=== PATIENT | male | born 1950 | race Caucasian/White ===

== ENCOUNTER 2017-01-28 12:18 | Outpatient (CLI) | payer MEDICARE, OTHER | END 2017-01-28 12:19 | disposition home or self-care (01) | LOC: LAB 12:18 | PROVIDERS: ATTEND Internal Medicine | DX: Z53.9 Procedure and treatment not carried out, unspecified reason (principal) | CPT/HCPCS: 85610 ==

== ENCOUNTER 2017-07-24 08:00 | Outpatient (CLI) | payer MEDICARE, OTHER ==
[2017-07-24 17:43] LABS: BASOPHILS # (AUTO) 0.1 10^3/uL (0.0-0.1); BASOPHILS % (AUTO) 0.7 %; EOSINOPHILS # (AUTO) 0.2 10^3/uL (0.0-0.7); EOSINOPHILS % (AUTO) 3.3 %; HGB - HEMOGLOBIN 14.2 g/dL (14.0-18.0); LYMPHOCYTES # (AUTO) 2.5 10^3/uL (1.5-3.5); LYMPHOCYTES % (AUTO) 34.5 %; MEAN CORPUSCULAR HEMOGLOBIN 32.7 pg (27.0-31.0); MEAN CORPUSCULAR VOLUME 99.3 fL (80.0-94.0); MEAN PLATELET VOLUME 9.1 fL (7.4-11.4); MONOCYTES # (AUTO) 0.5 10^3/uL (0.0-1.0); MONOCYTES % (AUTO) 7.1 %; NEUTROPHILS % (AUTO) 54.4 %; PLT - PLATELET COUNT 172 10^3/uL (130-450); RED BLOOD COUNT 4.35 10^6/uL (4.70-6.10); RED CELL DISTRIBUTION WIDTH 13.3 % (12.0-15.0); WHITE BLOOD COUNT 7.4 x10^3/uL (4.8-10.8)
[2017-07-24 18:06] LABS: ALBUMIN/GLOBULIN RATIO 1.3 (1.0-2.2); ALKALINE PHOSPHATASE 60 IU/L (42-121); ALT ALANINE AMINOTRANSFERASE 59 IU/L (10-60); AST ASPARTATE AMINOTRANSFERASE 32 IU/L (10-42); BILIRUBIN,TOTAL 0.4 mg/dL (0.2-1.0); BUN - BLOOD UREA NITROGEN 16 mg/dL (6-20); CALCIUM 8.9 mg/dL (8.5-10.3); CARBON DIOXIDE - CO2 28 mmol/L (21-32); CHLORIDE 105 mmol/L (101-111); CHOL/HDL RATIO 5.9 (<5.0); CHOLESTEROL 182 mg/dL; CREATININE 0.8 mg/dL (0.6-1.2); GFR - MDRD 96 (>89); GLUCOSE 83 mg/dL (70-100); HDL CHOLESTEROL 31 mg/dL; LDL CHOLESTEROL,CALCULATED 83 mg/dL; LDL/HDL RATIO 2.7 (<3.6); SODIUM 138 mmol/L (135-145); TOTAL PROTEIN 7.2 g/dL (6.7-8.2); URIC ACID 4.8 mg/dL (2.6-7.2); VLDL CHOLESTEROL 68 mg/dL
== END 2017-07-24 08:01 | disposition home or self-care (01) ==
LOC: LAB.R 08:00
PROVIDERS: ATTEND Internal Medicine
DX: E78.6 Lipoprotein deficiency (principal); Z12.5 Encounter for screening for malignant neoplasm of prostate; I10 Essential (primary) hypertension; M50.10 Cervical disc disorder with radiculopathy, unspecified cervical region; M10.9 Gout, unspecified
CPT/HCPCS: 80053; 80061; 84443; 84550; 85025; G0103; 83721; 84153

== ENCOUNTER 2019-06-23 14:46 | Outpatient (CLI) | payer MEDICARE, OTHER ==
--- NOTE | 2019-06-24 09:31 | XRAY Report ---
Reason: PAIN IN RIGHT HAND Procedure Date: 06/23/2019 Accession Number: [id number] / [id number] Procedure: XR - Hand 2 View RT CPT Code: Final Report FULL RESULT: EXAM: RIGHT HAND RADIOGRAPHY EXAM DATE: 06/23/2019 02:59 PM. CLINICAL HISTORY: PAIN IN RIGHT HAND. COMPARISON: None. TECHNIQUE: 2 views. FINDINGS: Bones: Normal. No fractures or bone lesions. Joints: Interphalangeal joint space narrowing is most pronounced at the right thumb interphalangeal joint and middle finger distal interphalangeal joint. Right thumb interphalangeal marginal spurring. No subluxation. Scaphomultangular joint space narrowing. Soft Tissues: Normal. No soft tissue swelling. IMPRESSION: Degenerative changes. RADIA
== END 2019-06-23 14:47 | disposition home or self-care (01) ==
LOC: DI 14:46
PROVIDERS: ATTEND Internal Medicine
DX: M19.041 Primary osteoarthritis, right hand (principal)

== ENCOUNTER 2020-08-23 08:00 | Outpatient (CLI) | payer MEDICARE, OTHER ==
[2020-08-23 10:47] LABS: BASOPHILS % (AUTO) 0.3 %; EOSINOPHILS # (AUTO) 0.2 10^3/uL (0.0-0.7); EOSINOPHILS % (AUTO) 2.6 %; HGB - HEMOGLOBIN 14.6 g/dL (14.0-18.0); LYMPHOCYTES # (AUTO) 2.5 10^3/uL (1.5-3.5); LYMPHOCYTES % (AUTO) 33.7 %; MEAN CORPUSCULAR HEMOGLOBIN 33.9 pg (27.0-31.0); MEAN CORPUSCULAR HGB CONC 34.4 g/dL (32.0-36.0); MEAN CORPUSCULAR VOLUME 98.4 fL (80.0-94.0); MEAN PLATELET VOLUME 9.5 fL (7.4-11.4); MONOCYTES # (AUTO) 0.7 10^3/uL (0.0-1.0); MONOCYTES % (AUTO) 8.9 %; NEUTROPHILS % (AUTO) 53.8 %; PLT - PLATELET COUNT 163 10^3/uL (130-450); RED BLOOD COUNT 4.31 10^6/uL (4.70-6.10); RED CELL DISTRIBUTION WIDTH 12.6 % (12.0-15.0); WHITE BLOOD COUNT 7.3 x10^3/uL (4.8-10.8)
[2020-08-23 11:09] LABS: ALBUMIN 4.2 g/dL (3.2-5.5); ALBUMIN/GLOBULIN RATIO 1.3 (1.0-2.2); ALKALINE PHOSPHATASE 71 IU/L (42-121); ALT ALANINE AMINOTRANSFERASE 42 IU/L (10-60); AST ASPARTATE AMINOTRANSFERASE 23 IU/L (10-42); BUN - BLOOD UREA NITROGEN 20 mg/dL (6-20); CALCIUM 9.6 mg/dL (8.5-10.3); CARBON DIOXIDE - CO2 29 mmol/L (21-32); CHLORIDE 102 mmol/L (101-111); CHOL/HDL RATIO 5.7 (<5.0); CHOLESTEROL 189 mg/dL; CREATININE 0.9 mg/dL (0.6-1.2); GLUCOSE 107 mg/dL (70-100); HDL CHOLESTEROL 33 mg/dL; LDL CHOLESTEROL,CALCULATED 111 mg/dL; LDL/HDL RATIO 3.4 (<3.6); TOTAL PROTEIN 7.5 g/dL (6.7-8.2); URIC ACID 4.9 mg/dL (2.6-7.2); VLDL CHOLESTEROL 45 mg/dL
[2020-08-23 11:42] LABS: CRP - C-REACTIVE PROTEIN < 1.0 mg/dL (0-1.0)
== END 2020-08-23 23:59 | disposition home or self-care (01) ==
LOC: LAB 08:00
PROVIDERS: ATTEND Family Medicine
DX: M10.9 Gout, unspecified (principal); H91.90 Unspecified hearing loss, unspecified ear; I10 Essential (primary) hypertension
CPT/HCPCS: 36415; 80053; 80061; 83721; 84443; 84550; 85025; 85651; 86140

== ENCOUNTER 2022-03-12 09:15 | Outpatient (CLI) | payer MEDICARE | END 2022-03-12 09:16 | disposition left against medical advice (07) | LOC: EMS 09:15 | DX: S20.411A Abrasion of right back wall of thorax, initial encounter (principal); R53.1 Weakness; W18.2XXA Fall in (into) shower or empty bathtub, initial encounter; Y92.002 Bathroom of unspecified non-institutional (private) residence as the place of occurrence of the external cause; Z20.822 Contact with and (suspected) exposure to COVID-19; I49.9 Cardiac arrhythmia, unspecified ==

== ENCOUNTER 2022-05-06 10:32 | Emergency (ER) | payer MEDICARE ==
[2022-05-06 10:38] VITALS: BP 162/85
--- NOTE | 2022-05-06 10:46 | ED Physician Documentation ---
PD HPI UPPER EXT INJURY - Stated complaint Stated Complaint: FALL/SHOULDER PX - Chief complaint Chief Complaint: Trauma Ext - History obtained from History obtained from: Patient - History of Present Illness Location: Right, Shoulder Type of injury: Fall Where injury occurred: Home Timing - onset: How many days ago Timing - duration: Days Timing - details: Abrupt onset, Still present Worsened by: Moving (mainly abduction and some rotational movements. Has bruising show up just below shoulder today.), Palpating Associated symptoms: Discolored (bruising developing today). No: Weakness, Numbness Review of Systems Skin: denies: Abrasion (s), Laceration (s) Musculoskeletal: denies: Neck pain Neurologic: denies: Focal weakness, Numbness PD PAST MEDICAL HISTORY - Past Medical History Cardiovascular: None Respiratory: None Musculoskeletal: None - Present Medications Home Medications: Ambulatory Orders Medication Instructions Recorded Confirmed HYDROcod/ACETAM 5/325 [[place] 5/325] 1 ea PO Q6H PRN #14 tablet 05/06/22 - Allergies Allergies/Adverse Reactions: Allergies Allergy/AdvReac Type Severity Reaction Status Date / Time No Known Drug Allergies Allergy Verified 05/06/22 10:38 - Living Situation Living Situation: reports: With spouse/s.o. Living Arrangement: reports: At home PD ED PE NORMAL - Vitals Vital signs reviewed: Yes - General General: Alert and oriented X 3, No acute distress (comfortable with arm rested to side. pain with rom. ), Well developed/nourished - Derm Derm: Normal color, Warm and dry, No rash, Other (bruising purple/yellow without tenderness just below shoulder and toward the mid bicep area. ) - Extremities Extremities: Other (right shoulder pain with abduction, external rotation, flexion. Not as bad with extension, internal rotation and adduction. Biceps flexion without pain. ) - Neuro Neuro: Alert and oriented X 3, No motor deficit, No sensory deficit, Normal speech Results - Vitals Vitals: Oxygen O2 Source Room air - Rads (name of study) shoulder xray Radiology: Prelim report reviewed (no fracture), See rad report PD MEDICAL DECISION MAKING - ED course Complexity details: reviewed results, considered differential (seems likely rotator cuff partial tear or tear, likely supraspinatus? To use sling with ROM often during the day. f/u ortho. ), d/w patient Departure - Departure Disposition: 01 Home, Self Care Clinical Impression: Fall from slip, trip, or stumble Qualifiers: Encounter type: initial encounter Qualified Code(s): W01.0XXA - Fall on same level from slipping, tripping and stumbling without subsequent striking against object, initial encounter Injury of right rotator cuff Qualifiers: Encounter type: initial encounter Qualified Code(s): S46.001A - Unspecified injury of muscle(s) and tendon(s) of the rotator cuff of right shoulder, initial encounter Condition: Stable Record reviewed to determine appropriate education?: Yes Instructions: ED Torn Rotator Cuff Follow-Up: Jose Roberto Alvarenga MD [Primary Care Provider] - [facility] [Provider Group] Prescriptions: HYDROcod/ACETAM 5/325 [[place] 5/325] 1 ea PO Q6H PRN #14 tablet PRN Reason: Pain Comments: Your x-ray is normal without any signs of fractures no dislocation. Clinically it sounds likely you have a partial tear of the rotator cuff. This is a collective of 4 muscle and tendons that anchor the shoulder and provide rotational movement. It is unusual to tear them completely but you can have injury to 1 or 2 of the tendons. I would suggest using a sling with gentle range of motion a few times a day for the next couple of weeks. I would follow-up with orthopedics in about a week, call today for an appointment. At that point they can see how your shoulder is doing and decide further duration of treatment and if any other imaging is warranted. Meanwhile use the sling much of the time. In particular no overhead reaching, push pull, lifting with the arm. Use Tylenol every 4-6 hours (4 times a day regularly for the next 7 to 10 days). Alternatively can use hydrocodone/acetaminophen if needed for worse pain. You could also use anti-inflammatory such as naproxen or Aleve twice daily with food for the next several days to week. You will develop more bruising likely down the arm and this just leaching of the blood from the shoulder downward by gravity. I sent your prescription to [facility] pharmacy. I am prescribing a short course of narcotic pain medication for you. These are potentially dangerous and addictive medications that should be used carefully. These medications may constipate you. Take an rxkk-uti-dmgoroc stool softener such as docusate twice daily with plenty of water while taking these medications. If you go 24 hours without a bowel movement, take njpc-jnv-jnmjsul MiraLAX, per package instructions. Do not drink or drive while taking these medications. If you received narcotic or sedating medications while in the emergency department do not drive for 24 hours. Store this medication in a safe, secure place and out of reach of children. It is a violation of federal law to give or sell this medication to another person or to use in a manner other than prescribed. The ED will not refill narcotic prescriptions, including prescriptions lost or stolen. You can dispose of unwanted medications at the [facility] office or at several pharmacies such as [facility]. Discharge Date/Time: 05/06/22 11:59
--- NOTE | 2022-05-06 11:24 | XRAY Report ---
PROCEDURE: Shoulder 3 View RT INDICATIONS: trauma TECHNIQUE: 3 views of the shoulder were acquired. COMPARISON: None. FINDINGS: Bones: No fractures or dislocations. No suspicious bony lesions. Visualized ribs appear intact. S evere acromioclavicular degenerative narrowing. Glenohumeral degenerative narrowing is also present. Soft tissues: No suspicious soft tissue calcifications. IMPRESSION: No visualized acute fracture or dislocation. However, occult injury cannot be excluded. Recommend short interval imaging follow-up in 7-10 days as clinically indicated for additional evalua tion. Reviewed by: Kayce Santiago MD on 05/06/2022 11:23 AM PDT Approved by: Kayce Santiago MD on 05/06/2022 11:23 AM PDT Station ID: [id number]
[2022-05-06] MEDS ORDERED: ACETAMINOPHEN 325 MG TABLET PO STA (11:26)
== END 2022-05-06 11:59 | disposition home or self-care (01) ==
LOC: ED 10:32
DX: S46.001A Unspecified injury of muscle(s) and tendon(s) of the rotator cuff of right shoulder, initial encounter (principal); W01.0XXA Fall on same level from slipping, tripping and stumbling without subsequent striking against object, initial encounter
CPT/HCPCS: 73030; 99282; 99283; A9270

== ENCOUNTER 2022-05-14 12:45 | Outpatient (CLI) | payer MEDICARE ==
--- NOTE | 2022-05-14 14:33 | XRAY Report ---
PROCEDURE: Clavicle RT INDICATIONS: PAIN IN RIGHT SHOULDER TECHNIQUE: 2 views of the clavicle were acquired. COMPARISON: X-ray right shoulder, 05/14/2022 and 05/06/2022. FINDINGS: Bones: No fractures or dislocations. No suspicious bony lesions. There is moderate acromioclavicul ar and glenohumeral joint degeneration with joint space narrowing and periarticular osteophytes. Soft tissues: No suspicious soft tissue calcifications. IMPRESSION: 1. No acute osseous abnormalities. 2. Moderate osteoarthritis of the acromioclavicular and glenohumeral joints. Reviewed by: Dominik Ballesteros MD on 05/14/2022 2:32 PM PST Approved by: Dominik Ballesteros MD on 05/14/2022 2:32 PM PST Station ID: [id number]
--- NOTE | 2022-05-14 16:30 | XRAY Report ---
PROCEDURE: Shoulder 3 View RT INDICATIONS: SHOULDER PX TECHNIQUE: 3 views of the shoulder were acquired. COMPARISON: X-ray right clavicle, 05/14/2022. FINDINGS: Bones: No fractures or dislocations. No suspicious bony lesions. Moderate osteoarthritic changes i n acromioclavicular and glenohumeral joint. Visualized ribs appear intact. Soft tissues: No suspicious soft tissue calcifications. IMPRESSION: 1. Moderate osteoarthritis. 2. No fracture or dislocation. If clinical suspicion for internal derangement is high, MRI would be h elpful. Reviewed by: Dominik Ballesteros MD on 05/14/2022 4:29 PM PST Approved by: Dominik Ballesteros MD on 05/14/2022 4:29 PM PST Station ID: [id number]
== END 2022-05-14 12:46 | disposition home or self-care (01) ==
LOC: DI 12:45
PROVIDERS: ATTEND Physician Assistant
DX: M19.011 Primary osteoarthritis, right shoulder (principal)

== ENCOUNTER 2023-07-22 08:27 | Outpatient (CLI) | payer MEDICARE ==
[2023-07-22 08:39] LABS: BASOPHILS % (AUTO) 0.4 %; EOSINOPHILS # (AUTO) 0.2 10^3/uL (0.0-0.7); EOSINOPHILS % (AUTO) 2.2 %; HCT - HEMATOCRIT 42.5 % (42.0-52.0); HGB - HEMOGLOBIN 14.4 g/dL (14.0-18.0); LYMPHOCYTES # (AUTO) 2.6 10^3/uL (1.5-3.5); LYMPHOCYTES % (AUTO) 33.9 %; MEAN CORPUSCULAR HEMOGLOBIN 33.4 pg (27.0-31.0); MEAN CORPUSCULAR HGB CONC 33.9 g/dL (32.0-36.0); MEAN CORPUSCULAR VOLUME 98.6 fL (80.0-94.0); MEAN PLATELET VOLUME 9.5 fL (7.4-11.4); MONOCYTES # (AUTO) 0.7 10^3/uL (0.0-1.0); MONOCYTES % (AUTO) 8.6 %; NEUTROPHILS # (AUTO) 4.1 10^3/uL (1.5-6.6); NEUTROPHILS % (AUTO) 54.1 %; PLT - PLATELET COUNT 158 10^3/uL (130-450); RED BLOOD COUNT 4.31 10^6/uL (4.70-6.10); RED CELL DISTRIBUTION WIDTH 12.7 % (12.0-15.0); WHITE BLOOD COUNT 7.6 x10^3/uL (4.8-10.8)
[2023-07-22 09:02] LABS: ALBUMIN 4.1 g/dL (3.2-5.5); ALBUMIN/GLOBULIN RATIO 1.5 (1.0-2.2); ALKALINE PHOSPHATASE 74 IU/L (42-121); ALT ALANINE AMINOTRANSFERASE 25 IU/L (10-60); AST ASPARTATE AMINOTRANSFERASE 18 IU/L (10-42); BILIRUBIN,TOTAL 0.7 mg/dL (0.2-1.0); BUN - BLOOD UREA NITROGEN 16 mg/dL (6-20); CALCIUM 9.6 mg/dL (8.5-10.3); CARBON DIOXIDE - CO2 33 mmol/L (21-32); CHLORIDE 102 mmol/L (101-111); CHOL/HDL RATIO 5.3 (<5.0); CHOLESTEROL 186 mg/dL; CREATININE 0.9 mg/dL (0.6-1.3); GFR - MDRD 82 (>89); GLUCOSE 112 mg/dL (74-104); HDL CHOLESTEROL 35 mg/dL; LDL CHOLESTEROL,CALCULATED 104 mg/dL; POTASSIUM 4.3 mmol/L (3.5-4.5); SODIUM 141 mmol/L (135-145); TOTAL PROTEIN 6.9 g/dL (6.4-8.9); TRIGLYCERIDES 235 mg/dL (48-352); URIC ACID 4.9 mg/dL (4.4-7.6); VLDL CHOLESTEROL 47 mg/dL
[2023-07-22 09:08] LABS: THYROID STIMULATING HORMONE 2.33 uIU/mL (0.34-5.60)
== END 2023-07-22 08:28 | disposition home or self-care (01) ==
LOC: LAB 08:27
PROVIDERS: ATTEND Family Medicine
DX: I10 Essential (primary) hypertension (principal); Z12.5 Encounter for screening for malignant neoplasm of prostate; M10.9 Gout, unspecified; M47.12 Other spondylosis with myelopathy, cervical region; J44.9 Chronic obstructive pulmonary disease, unspecified
CPT/HCPCS: 36415; 80053; 80061; 84443; 84550; 85025; G0103; 83721; 84153

== ENCOUNTER 2023-10-11 12:36 | Emergency (ER) | payer MEDICARE ==
--- NOTE | 2023-10-11 13:33 | ED Physician Documentation ---
PD HPI UPPER EXT INJURY - Stated complaint Stated Complaint: WRIST/BK PX - Chief complaint Chief Complaint: Trauma Ext - History obtained from History obtained from: Patient, Family - History of Present Illness Location: Right, Wrist Type of injury: Other (pushed off with right hand to stand up) Where injury occurred: Home Timing - onset: Yesterday Timing - duration: Days (1) Timing - details: Abrupt onset, Still present Improved by: Rest, Immobilization Worsened by: Moving, Palpating Associated symptoms: No: Weakness, Numbness, Tingling, Swelling, Discolored Contributing factors: No: Anticoagulated Similar symptoms before: Diagnosis (wrist fracture) Recently seen: Not recently seen - Additonal information Additional information: 73-year-old Jorge Gallego has a history of prostate cancer hypertension and gout and yesterday he was at his home changing the tires on his lawnmower when he went to stand up he put his hand on top of the lawnmower and pushed himself up to stand. He felt that he had some mild pain to his hand at the time but this did not blossom into significant pain until an hour or 2 later. He has had pain since then and had some difficulty sleeping last night. He has some reduced range of motion secondary to the pain. Review of Systems Constitutional: denies: Fever Ears: denies: Ear pain Nose: denies: Congestion Throat: denies: Sore throat Respiratory: denies: Cough GI: denies: Vomiting PD PAST MEDICAL HISTORY - Past Medical History Past Medical History: Yes Cardiovascular: Hypertension Respiratory: None Endocrine/Autoimmune: None GI: None : None HEENT: Chronic hearing loss Psych: None Musculoskeletal: Osteoarthritis, Gout, Chronic back pain Derm: None - Past Surgical History Past Surgical History: Yes Ortho: Spine surgery - Present Medications Home Medications: Ambulatory Orders Medication Instructions Recorded Confirmed Aspirin [Aspirin EC] 162 mg PO DAILY 09/02/23 10/11/23 Cholecalciferol [Vitamin D3] 25 mcg PO DAILY 09/02/23 10/11/23 Lisinopril [Zestril] 20 mg PO DAILY 09/02/23 10/11/23 Multivitamin 1 each PO DAILY 09/02/23 10/11/23 [place]-3/Dha/Epa/Fish Oil [Fish Oil 1 each PO DAILY 09/02/23 10/11/23 1,000 mg Softgel] allopurinoL [Allopurinol] 300 mg PO DAILY 09/02/23 10/11/23 - Allergies Allergies/Adverse Reactions: Allergies Allergy/AdvReac Type Severity Reaction Status Date / Time No Known Drug Allergies Allergy Verified 10/11/23 12:40 - Social History Does the pt smoke?: No Smoking Status: Never smoker Does the pt drink ETOH?: No Does the pt have substance abuse?: No - Immunizations Immunizations: TDAP >10years/unknown PD ED PE NORMAL - Vitals Vital signs reviewed: Yes (hypertensive ) - General General: Alert and oriented X 3, No acute distress, Well developed/nourished - HEENT HEENT: Atraumatic, PERRL, EOMI - Respiratory Respiratory: No respiratory distress - Derm Derm: Normal color, Warm and dry, No rash - Extremities Extremities: No deformity, No edema, Other (Tenderness to the distal radius on the radial surface there is specifically not tenderness in the anatomic snuffbox. The patient does have reduced range of motion to flexion extension. Distal neurovascular components intact no crepitance or deformity) - Neuro Neuro: Alert and oriented X 3, gel coater 2-12 intact, No motor deficit, No sensory deficit, Normal speech Eye Opening: Spontaneous Motor: Obeys Commands Verbal: Oriented GCS Score: 15 - Psych Psych: Normal mood, Normal affect Results - Vitals Vitals: Vital Signs - 24 hr 10/11/23 10/11/23 12:40 14:28 Temperature 36.5 C 36.8 C Heart Rate 50 L 49 L Respiratory 16 16 Rate Blood Pressure 160/63 H 114/93 H O2 Saturation 94 96 Oxygen O2 Source Room air - Rads (name of study) wrist R Relevant Findings:: Prelim report reviewed (Impression: Unremarkable wrist radiographs.), [facility] independent interpretation of test Procedures - Splint (location) - Minor Right wrist Splint applied by: Tech Type of splint: Fiberglass, Volar cock up Other: Patient tolerated well, No complications, Neurovascular intact, Good alignment PD Medical Decision Making - ED course Complexity details: reviewed results, re-evaluated patient, considered differential, d/w patient, d/w family ED course: 73-year-old Jorge Gallego has sprained his right wrist. He is placed into a volar splint and we will have him follow-up with his primary. I have discussed the possibility of requiring a second x-ray if he does not have resolution at the 7 to 10-day trina. Departure - Departure Disposition: 01 Home, Self Care Clinical Impression: Sprain of right wrist Qualifiers: Encounter type: initial encounter Qualified Code(s): S63.501A - Unspecified sprain of right wrist, initial encounter Condition: Stable Instructions: ED Sprain Wrist Follow-Up: Jose Roberto Alvarenga MD [Primary Care Provider] - Comments: Jorge, today it looks like you have sprained your wrist and we have placed you into a wrist splint. The recommendation is to wear this splint for 1 to 2 weeks and when you can open a door without pain to your wrist you can stop using the splint. If you have persistence of this pain at 1 week to 10 days a second x- ray is indicated to rule out occult fracture. Forms: PCP List Discharge Date/Time: 10/11/23 14:28
[2023-10-11 14:36] VITALS: BP 114/93; O2SAT 96
--- NOTE | 2023-10-11 15:21 | XRAY Report ---
PROCEDURE: Wrist 3+V RT INDICATIONS: pain TECHNIQUE: 4 views of the wrist were acquired. COMPARISON: None FINDINGS: Bones: No fractures or dislocations. No suspicious bony lesions. Soft tissues: No suspicious soft tissue calcifications or masses. IMPRESSION: Unremarkable wrist radiographs Reviewed by: Gerard Lozada MD on 10/11/2023 2:19 PM AKDT Approved by: Gerard Lozada MD on 10/11/2023 2:19 PM AKDT Station ID: [id number]
== END 2023-10-11 14:28 | disposition home or self-care (01) ==
LOC: ED 12:36
DX: S63.501A Unspecified sprain of right wrist, initial encounter (principal); X58.XXXA Exposure to other specified factors, initial encounter; I10 Essential (primary) hypertension; M10.9 Gout, unspecified; Z85.46 Personal history of malignant neoplasm of prostate; Z79.82 Long term (current) use of aspirin; Z79.899 Other long term (current) drug therapy
CPT/HCPCS: 29125; 99283; 99284

== ENCOUNTER 2024-01-29 12:57 | Outpatient (CLI) | payer MEDICARE ==
[2024-01-29 13:08] LABS: BASOPHILS % (AUTO) 0.4 %; EOSINOPHILS % (AUTO) 0.6 %; HCT - HEMATOCRIT 40.6 % (42.0-52.0); HGB - HEMOGLOBIN 13.3 g/dL (14.0-18.0); LYMPHOCYTES # (AUTO) 1.9 10^3/uL (1.5-3.5); LYMPHOCYTES % (AUTO) 27.6 %; MEAN CORPUSCULAR HEMOGLOBIN 32.9 pg (27.0-31.0); MEAN CORPUSCULAR HGB CONC 32.8 g/dL (32.0-36.0); MEAN CORPUSCULAR VOLUME 100.5 fL (80.0-94.0); MEAN PLATELET VOLUME 10.1 fL (7.4-11.4); MONOCYTES # (AUTO) 0.4 10^3/uL (0.0-1.0); MONOCYTES % (AUTO) 5.7 %; NEUTROPHILS # (AUTO) 4.4 10^3/uL (1.5-6.6); NEUTROPHILS % (AUTO) 65.1 %; PLT - PLATELET COUNT 146 10^3/uL (130-450); RED BLOOD COUNT 4.04 10^6/uL (4.70-6.10); RED CELL DISTRIBUTION WIDTH 12.3 % (12.0-15.0); WHITE BLOOD COUNT 6.8 x10^3/uL (4.8-10.8)
[2024-01-29 13:27] LABS: ALBUMIN 4.4 g/dL (3.2-5.5); ALBUMIN/GLOBULIN RATIO 1.6 (1.0-2.2); BILIRUBIN,TOTAL 0.9 mg/dL (0.2-1.0); CALCIUM 10.3 mg/dL (8.5-10.3); CREATININE 0.9 mg/dL (0.6-1.3); POTASSIUM 4.2 mmol/L (3.5-4.5); TOTAL PROTEIN 7.2 g/dL (6.4-8.9)
== END 2024-01-29 12:58 | disposition home or self-care (01) ==
LOC: LAB 12:57
PROVIDERS: ATTEND Internal Medicine Hematology & Oncology
DX: C61 Malignant neoplasm of prostate (principal)
CPT/HCPCS: 36415; 80053; 84153; 85025

== ENCOUNTER 2024-03-25 08:02 | Outpatient (CLI) | payer MEDICARE ==
[2024-03-25 08:15] LABS: BASOPHILS % (AUTO) 0.6 %; EOSINOPHILS # (AUTO) 0.1 10^3/uL (0.0-0.7); HCT - HEMATOCRIT 40.5 % (42.0-52.0); HGB - HEMOGLOBIN 13.4 g/dL (14.0-18.0); LYMPHOCYTES # (AUTO) 0.8 10^3/uL (1.5-3.5); LYMPHOCYTES % (AUTO) 16.4 %; MEAN CORPUSCULAR HEMOGLOBIN 33.3 pg (27.0-31.0); MEAN CORPUSCULAR HGB CONC 33.1 g/dL (32.0-36.0); MEAN CORPUSCULAR VOLUME 100.7 fL (80.0-94.0); MEAN PLATELET VOLUME 9.5 fL (7.4-11.4); MONOCYTES # (AUTO) 0.5 10^3/uL (0.0-1.0); MONOCYTES % (AUTO) 9.8 %; NEUTROPHILS # (AUTO) 3.6 10^3/uL (1.5-6.6); NEUTROPHILS % (AUTO) 70.6 %; PLT - PLATELET COUNT 152 10^3/uL (130-450); RED BLOOD COUNT 4.02 10^6/uL (4.70-6.10); RED CELL DISTRIBUTION WIDTH 12.7 % (12.0-15.0); WHITE BLOOD COUNT 5.1 x10^3/uL (4.8-10.8)
[2024-03-25 08:29] LABS: ALBUMIN 4.1 g/dL (3.2-5.5); ALBUMIN/GLOBULIN RATIO 1.6 (1.0-2.2); BILIRUBIN,TOTAL 0.9 mg/dL (0.2-1.0); CREATININE 0.9 mg/dL (0.6-1.3); POTASSIUM 3.7 mmol/L (3.5-4.5); TOTAL PROTEIN 6.6 g/dL (6.4-8.9)
== END 2024-03-25 08:03 | disposition home or self-care (01) ==
LOC: LAB 08:02
PROVIDERS: ATTEND Internal Medicine Hematology & Oncology
DX: C61 Malignant neoplasm of prostate (principal)
CPT/HCPCS: 36415; 80053; 85025

== ENCOUNTER 2024-06-30 20:34 | Observation (INO) ==
--- NOTE | 2024-06-30 21:09 | ED Physician Documentation ---
History of Present Illness Stated complaint Stated Complaint: VOMIT Chief complaint Chief Complaint: General Additonal information Additional information: 74-year-old presents with possible food impaction. Patient was eating steak last night when he felt food get stuck in his lower esophagus. Since then, he has been unable to swallow solids or liquids. He has tried around 10 times to drink or eat something with no success. He tried a cold 7-Up as well as antacids with no improvement. He has never had a food impaction before. He presents this evening due to continuation of the substernal discomfort. Meds/Allgy Home Medications Ambulatory Orders Medication Instructions Recorded Confirmed aspirin 325 mg tablet,delayed 162 mg PO DAILY 09/02/23 06/30/24 release cholecalciferol (vitamin D3) 25 25 mcg PO DAILY 09/02/23 06/30/24 mcg (1,000 unit) tablet multivitamin 1 ea PO DAILY 09/02/23 06/30/24 omega 0-ebe-keb-fish oil 300 1 ea PO DAILY 09/02/23 06/30/24 mg-1,000 mg capsule (Fish Oil) allopurinol 300 mg tablet 300 mg PO DAILY #90 tabs 04/27/24 06/30/24 lisinopril 20 mg tablet (Zestril) 20 mg PO DAILY #90 tabs 04/27/24 06/30/24 oxybutynin chloride 5 mg tablet 5 mg PO .nightly #30 tabs 06/17/24 06/30/24 Allergies Allergies Allergy/AdvReac Type Severity Reaction Status Date / Time No Known Drug Allergies Allergy Verified 06/30/24 20:52 [facility] Medical History Medical History (Updated 06/30/24 @ 22:00 by Francisco Preston MD) History of hypertension Social History Social History Smoking Status: Former smoker Do you vape?: No Living arrangement: At home Living Condition: With spouse/s.o. Relationship: Do you feel safe in your home environment?: Yes Suffered physical, verbal, emotional, or financial abuse?: No History of Abuse: No Exam Exam Patient in no apparent distress and no evidence of drooling. He is actively spitting up into a vomit basin. There is no abdominal tenderness. He is speaking in full sentences with unlabored breathing. There is no respiratory distress. Lungs are clear to auscultation bilaterally. Results Vitals Vitals: Vital Signs - 24 hr 06/30/24 20:42 06/30/24 20:56 Temperature 36.6 C Temperature Source Skin Pulse Rate 59 L 77 Respiratory Rate 18 18 Blood Pressure 140/87 H 155/76 H O2 Saturation 95 93 O2 Source Room air Room air Pain Intensity 5 0 Oxygen O2 Source Room air PD Medical Decision Making ED course ED course: Presents for concerns of food impaction. We attempted warm soda, pop rocks, and glucagon with no success. Patient is tolerating secretions and in no respiratory distress. I consulted on-call surgery, who will admit the patient for EGD tomorrow if food impaction is still present. Discharge Plan Discharge Patient Disposition: ED Place in Observation Condition: Serious Clinical Impression: Esophageal obstruction due to food impaction Prescriptions: No Action multivitamin 1 EACH tablet 1 ea PO DAILY aspirin 325 MG tablet,delayed release (DR/EC) 162 mg PO DAILY cholecalciferol (vitamin D3) 25 MCG tablet 25 mcg PO DAILY omega 6-eil-pcb-fish oil [Fish Oil] 1 EACH capsule 1 ea PO DAILY oxybutynin chloride 5 mg tablet 5 mg PO .nightly Qty: 30 2RF Rx Instructions: take one pill at night before bed allopurinol 300 mg tablet 300 mg PO DAILY Qty: 90 0RF lisinopril [Zestril] 20 mg tablet 20 mg PO DAILY Qty: 90 0RF Print Language: [place]an Stand Alone Forms: PCP List
[2024-06-30] MEDS: GLUCAGON 1 MG/ML VIAL IVP STA (21:15)
[2024-06-30] MEDS: ONDANSETRON 4 MG/2 ML VIAL IVP STA (21:20)
[2024-06-30] MEDS ORDERED: GLUCAGON 1 MG/ML VIAL ONE (21:32)
[2024-06-30] MEDS: GLUCAGON 2 MG in DEXTROSE 5% 45 ML IV STA (21:36)
[2024-06-30] MEDS ORDERED: SODIUM CHLORIDE FLUSH 0.9% 10 ML SYRINGE IVP PRN (22:07)
[2024-06-30] MEDS ORDERED: ONDANSETRON 4 MG/2 ML VIAL IVP PRN (22:07)
[2024-06-30] MEDS ORDERED: ONDANSETRON ODT 4 MG TABLET TL PRN (22:07)
[2024-06-30] MEDS: D5.45NS W/20 MEQ KCL 1,000 ML IV SCH (23:03)
[2024-07-01] MEDS: SODIUM CHLORIDE FLUSH 0.9% 10 ML SYRINGE IVP SCH (00:57)
[2024-07-01] MEDS ORDERED: NALOXONE 0.4 MG/ML VIAL IVP PRN (07:58)
[2024-07-01] MEDS ORDERED: ePHEDrine 50 MG/ML VIAL IVP PRN (07:58)
[2024-07-01] MEDS ORDERED: METOCLOPRAMIDE 10 MG/2 ML VIAL IVP PRN (07:58)
[2024-07-01] MEDS ORDERED: fentaNYL 100 MCG/2 ML VIAL IVP PRN (07:58)
[2024-07-01] MEDS ORDERED: MORPHINE 2 MG/ML CARPUJECT IVP PRN (07:58)
[2024-07-01] MEDS ORDERED: HYDROmorphone 0.5 MG/0.5 ML SYRINGE IVP PRN (07:58)
[2024-07-01] MEDS ORDERED: ATROPINE ABBOJECT 1 MG/10 ML SYRINGE IVP PRN (07:58)
[2024-07-01] MEDS ORDERED: ONDANSETRON 4 MG/2 ML VIAL IVP PRN (07:58)
--- NOTE | 2024-07-01 07:58 | ANESTHESIA PROCEDURE NOTE ---
Pre-Anesthesia VS, & Labs Diagnosis Surgical Diagnosis:: food impaction Procedure Procedure: removal of food impaction Vitals Vital Signs: Temp Pulse Resp BP Pulse Ox 36.8 C 84 18 111/67 92 07/01/24 04:31 07/01/24 04:31 07/01/24 04:31 07/01/24 04:31 07/01/24 04:31 Height (in): 5 ft 10 in Weight (kg): 91 kg Body Mass Index: 28.8 BMI Classification: Overweight NPO NPO: >8 hours Meds/Allgy Home Medications Ambulatory Orders Medication Instructions Recorded Confirmed aspirin 325 mg tablet,delayed 162 mg PO DAILY 09/02/23 06/30/24 release cholecalciferol (vitamin D3) 25 25 mcg PO DAILY 09/02/23 06/30/24 mcg (1,000 unit) tablet multivitamin 1 ea PO DAILY 09/02/23 06/30/24 omega 6-clc-unb-fish oil 300 1 ea PO DAILY 09/02/23 06/30/24 mg-1,000 mg capsule (Fish Oil) allopurinol 300 mg tablet 300 mg PO DAILY #90 tabs 04/27/24 06/30/24 lisinopril 20 mg tablet (Zestril) 20 mg PO DAILY #90 tabs 04/27/24 06/30/24 oxybutynin chloride 5 mg tablet 5 mg PO .nightly #30 tabs 06/17/24 06/30/24 Allergies Allergies Allergy/AdvReac Type Severity Reaction Status Date / Time No Known Drug Allergies Allergy Verified 06/30/24 20:52 [facility] Medical History Medical History (Updated 06/30/24 @ 22:00 by Francisco Preston MD) History of hypertension Social History Social History (Updated 07/01/24 @ 07:57 by Sylvester Gaspar CRNA) Smoking Status: Former smoker If you are a former smoker, when did you quit? (Date/Year): 1999 Number of Years Smoked: 30 How many cigarettes a day do you smoke? (20 cigarettes=1 Pk): 1 Second hand tobacco smoke exposure: Yes Do you dip or chew tobacco?: Yes Do you vape?: No Living arrangement: At home Living Condition: With spouse/s.o. Relationship: Level: Independent Do you feel safe in your home environment?: Yes Suffered physical, verbal, emotional, or financial abuse?: No History of Abuse: No Frequency: Weekly Anesthesia Exam (Expanded) Exam General: Alert and Mild distress Dental: WNL Mouth Openin Fingerbreadth Neck Mobility: Normal Mallampati classification: II Thyromental Distance: 4-6 cm Respiratory: Lungs clear Cardiovascular: Regular rate Plan Problem List (1) History of hypertension: Plan Anesthesia Type: General Consent for Procedure(s) Verified and Reviewed: Yes Code Status: Attempt Resuscitation ASA Classification ASA classification: 2-Mild systemic disease Is this case an emergency?: No
[2024-07-01] MEDS ORDERED: SUCCINYLCHOLINE 200 MG/10 ML VIAL ONE (08:16)
[2024-07-01] MEDS ORDERED: MIDAZOLAM 2 MG/2 ML VIAL ONE (08:16)
[2024-07-01] MEDS ORDERED: LIDOCAINE-PF 2% 10 ML AMP SUBQ ONE (08:16)
[2024-07-01] MEDS ORDERED: PROPOFOL 200 MG/20 ML VIAL IVP ONE (08:16)
[2024-07-01] MEDS ORDERED: fentaNYL 100 MCG/2 ML VIAL ONE (08:16)
--- NOTE | 2024-07-01 09:10 | CONSULTATION NOTE ---
Chief Complaint Chief Complaint Chief Complaint: can swallow saliva however nothing else. feeling of food stuck History of Present Illness Admitted From Admitted From:: ed History Obtained From Records Reviewed: yes History obtained from: pt Exam Limitations: none History of Present Illness HPI Comment/Other: food impaction not resolving with medical management and time Meds/Allgy Home Medications Ambulatory Orders Medication Instructions Recorded Confirmed aspirin 325 mg tablet,delayed 162 mg PO DAILY 09/02/23 06/30/24 release cholecalciferol (vitamin D3) 25 25 mcg PO DAILY 09/02/23 06/30/24 mcg (1,000 unit) tablet multivitamin 1 ea PO DAILY 09/02/23 06/30/24 omega 7-vin-xdj-fish oil 300 1 ea PO DAILY 09/02/23 06/30/24 mg-1,000 mg capsule (Fish Oil) allopurinol 300 mg tablet 300 mg PO DAILY #90 tabs 04/27/24 06/30/24 lisinopril 20 mg tablet (Zestril) 20 mg PO DAILY #90 tabs 04/27/24 06/30/24 oxybutynin chloride 5 mg tablet 5 mg PO .nightly #30 tabs 06/17/24 06/30/24 Allergies Allergies Allergy/AdvReac Type Severity Reaction Status Date / Time No Known Drug Allergies Allergy Verified 06/30/24 20:52 [facility] Medical History Medical History (Updated 06/30/24 @ 22:00 by Francisco Preston MD) History of hypertension Social History Social History (Updated 07/01/24 @ 07:57 by Sylvester Gaspar CRNA) Smoking Status: Former smoker If you are a former smoker, when did you quit? (Date/Year): 1999 Number of Years Smoked: 30 How many cigarettes a day do you smoke? (20 cigarettes=1 Pk): 1 Second hand tobacco smoke exposure: Yes Do you dip or chew tobacco?: Yes Do you vape?: No Living arrangement: At home Living Condition: With spouse/s.o. Relationship: Level: Independent Do you feel safe in your home environment?: Yes Suffered physical, verbal, emotional, or financial abuse?: No History of Abuse: No Frequency: Weekly Review of Systems Status of ROS: 10 or more systems reviewed and unremarkable except as noted in history and below Exam Constitutional normal general appearance and no apparent distress HENMT normocephalic and head/scalp atraumatic Eyes PERRL, EOMs intact bilaterally and no scleral icterus Neck/C-Spine trachea midline Respiratory normal respiratory effort Cardiovascular normal heart rate noted and regular rhythm noted Gastrointestinal nondistended Neurology speech normal and GCS 15 Psychiatry oriented x3, thought process normal, cooperative, affect normal and memory normal Conclusion/Plan Problem List (1) Esophageal obstruction due to food impaction: Plan: egd with clearance obstruction. parq held and consent obtained
[2024-07-01] MEDS ORDERED: PHENYLEPHRINE HCL 0.5 MG/5 ML AMPULE ONE (09:14)
[2024-07-01] MEDS ORDERED: ePHEDrine 50 MG/ML VIAL IVP ONE (09:14)
[2024-07-01] MEDS ORDERED: ONDANSETRON 4 MG/2 ML VIAL ONE (09:38)
--- NOTE | 2024-07-01 09:56 | OPERATIVE REPORT ---
Operative Report General Admit Date: 06/30/24 Procedure Data: Operation Date: 07/01/24 08:45 Proposed Procedures p Esophagogastroduodenoscopy(Not Applicable) - Rayray Jorge MD Actual Procedures p Esophagogastroduodenoscopy with biopsy and removal of soft food impaction(Not Applicable) - Rayray Jorge MD Pre-Op Diagnosis: FOOD IMPACTION Anesthesia Type General Case Staff Anesthesia Provider: Sylvester Gaspar Case Times Procedure Start: 07/01/24 09:21 Procedure End: 07/01/24 09:42 Time out: 07/01/24 09:19 Pre-Op Diagnosis: esophageal food impaction Post Op Diagnosis: same. healthy appearing esophagus Procedure Note Pathology: mid esophagus Indications: food impaction Findings: healthy appearing esophagus and stomach. impaction cleared Complications: none
[2024-07-01] MEDS ORDERED: D5.45NS W/20 MEQ KCL 1,000 ML IV SCH (10:00)
[2024-07-01 10:23] VITALS: TEMP 97.5
--- NOTE | 2024-07-01 10:33 | ANESTHESIA POST OP EVALUATION ---
Anesthesia Post Eval Post Anesthesia Eval Vitals: Last Vital Signs Temp 36.4 C L 07/01/24 10:22 Pulse 82 07/01/24 10:22 Resp 18 07/01/24 10:22 BP 113/71 07/01/24 10:22 Pulse Ox 92 07/01/24 10:22 O2 Flow Rate 2 07/01/24 10:22 CV Function Including HR & BP: Stable Pain Control: Satisfactory Nausea & Vomiting: Negative Mental Status: Baseline Respiratory Status: Airway Patent Hydration Status: Satisfactory Anesthesia Complications: None
[2024-07-01] MEDS: LACTATED RINGERS 1,000 ML IV SCH (10:40)
[2024-07-01 11:06] VITALS: BP 116/72; O2SAT 91
--- NOTE | 2024-07-02 10:34 | PROVIDER PROGRESS NOTE ---
Objective Vital Signs/Intake & Output Intake & Output: Intake & Output 06/29/24 06/30/24 07/01/24 07/02/24 23:59 23:59 23:59 23:59 Intake Total 990 / 990 Balance 990 / 990 Weight (kg) 91 kg 91 kg Assessment/Plan Problem List (1) Esophageal obstruction due to food impaction: Impression: he went home shortly after food impaction was cleared without being seen an additional time. good condition.
== END 2024-07-01 11:27 | disposition home or self-care (01) ==
LOC: MS2 20:34 → ED 20:34 → MS2 22:55
PROVIDERS: ADMIT Surgery; ATTEND Surgery
DX: I10 Essential (primary) hypertension; T18.128A Food in esophagus causing other injury, initial encounter; Z87.891 Personal history of nicotine dependence